=== PATIENT | female | born 1990 | race African-American/Black ===

== ENCOUNTER 2019-03-11 14:18 | Emergency (ER) | payer MEDICAID ==
[~2019-03-11] VITALS: Ht 170.2 cm; Wt 104.8 kg
[2019-03-11 15:37] LABS: Urine Bacteria NONE SEEN /hpf (None Seen); Urine Blood 3+ /uL (Negative); Urine Mucus MODERATE (None Seen); Urine WBC 23 /hpf (0 - 5)
[2019-03-11 15:39] LABS: Albumin 3.9 g/dL (3.4-5.0); BUN/Creatinine Ratio 12.2; Calcium 8.5 mg/dL (8.5-10.1); Potassium 3.9 mmol/L (3.5-5.1)
[2019-03-11 15:41] LABS: Bilirubin, Total 0.4 mg/dL (0.2-1.0); Total Protein 7.7 g/dL (6.4-8.2)
[2019-03-11 15:46] LABS: Basophils # (auto) 0 uL; Basophils % (auto) 0.4 % (0.0-2.0); Eosinophils # (auto) 0.1 uL; Eosinophils % (auto) 1.3 % (0.0-7.0); Hematocrit 37.5 % (36.0-46.0); Hemoglobin 12.5 g/dL (12.2-16.2); Lymphocytes % (auto) 23.6 % (10.0-50.0); Mean Corpuscular Hemoglobin 29.2 pg (28.0-32.0); Mean Corpuscular Hgb Conc. 33.2 g/dL (32.0-36.0); Mean Corpuscular Volume 87.8 fL (80.0-100.0); Monocytes # (auto) 0.6 uL; Neutrophils # (auto) 5.7 uL; Neutrophils % (auto) 67.7 % (37.0-80.0); Nucleated Red Blood Cells % 0.1 %; Platelet Count (auto) 242 10^3/uL (140-450); Red Blood Cells 4.27 10^6/uL (4.0-5.20); Red Cell Distribution Width 13.7 % (11.8-14.3); White Blood Cell 8.4 10^3/uL (4.4-10.8)
[2019-03-11 16:30] LABS: Urine Specific Gravity 1.032 (1.001-1.035)
[2019-03-11 16:41] VITALS: BP 117/79
== END 2019-03-11 19:05 | disposition home or self-care (01) ==
LOC: ER 14:18
DX: N92.0 Excessive and frequent menstruation with regular cycle (principal)
CPT/HCPCS: 36415; 76856; 80053; 81001; 84702; 85025